=== PATIENT | female | born 1995 | race Caucasian/White ===

== ENCOUNTER → 2016-04-25 | Outpatient (CLI) | payer OTHER ==
--- NOTE | 2016-04-25 14:12 | DIAGNOSTIC IMAGING REPORT ---
EXAMINATION: PELVIC ULTRASOUND CLINICAL HISTORY: N91.2 Amenorrhea COMPARISON STUDY: None FINDINGS: The uterus measured 6.0 x 2.3 x 3.8 cm. The endometrial stripe measured 4 mm. The right ovary measured 35 x 19 x 19 mm. The left ovary measured 42 x 19 x 25 mm. There is no ultrasonographic evidence of ovarian torsion. It should be noted that ovarian torsion can be present with normal Doppler ultrasonographic findings. There was no evidence of pathologic free pelvic fluid. Endovaginal scanning was not performed as the patient reports she is not sexually active. IMPRESSION: Normal pelvic ultrasound. Electronically signed by: Diego Isaac M.D. 04/25/2016 2:10 PM Dictated Date/Time: 04/25/2016 2:09 PM
== END | disposition home or self-care (01) ==
LOC: C.ULTR 13:44
PROVIDERS: ATTEND Family Medicine
DX: N91.2 Amenorrhea, unspecified (principal)

== ENCOUNTER → 2016-10-25 | Outpatient (CLI) | payer OTHER ==
[2016-10-25 10:32] LABS: INSULIN FASTING 44.3 mU/L (3-25); INSULIN LOG 1.6464
[2016-10-25 12:10] LABS: CALCULATED INSULIN SENSITIVITY 0.277; GLUCOSE LOG 1.9638
== END | disposition home or self-care (01) ==
LOC: C.LAB1850 07:59
PROVIDERS: ATTEND Obstetrics & Gynecology
DX: N91.2 Amenorrhea, unspecified (principal)

== ENCOUNTER → 2016-10-30 | Outpatient (CLI) | payer OTHER | END | disposition home or self-care (01) | LOC: C.LAB1850 07:23 | PROVIDERS: ATTEND Obstetrics & Gynecology | DX: E88.81 Metabolic syndrome and other insulin resistance (principal) ==

== ENCOUNTER → 2017-03-21 | Outpatient (CLI) | payer OTHER ==
[2017-03-21 14:41] LABS: BASO % 0.5 %; BASO ABS # 0.04 K/uL (0-0.2); COMPLETE YES; EOS % 0.7 %; HEMATOCRIT 42.1 % (37-47); IG% 0.2 %; LYMPH % 31.4 %; LYMPH ABS # 2.63 K/uL (1.2-3.4); MEAN CELL VOLUME 78.4 fL (80-100); MEAN CORPUSCULAR HEMOGLOBIN 26.4 pg (25-34); MEAN CORPUSCULAR HGB CONC 33.7 g/dl (32-36); MEAN PLATELET VOLUME 10.4 fL (7.4-10.4); MONO % 6.1 %; NEUT % 61.1 %; PLATELET COUNT 294 K/uL (130-400); RED BLOOD COUNT 5.37 M/uL (4.2-5.4); WHITE BLOOD COUNT 8.38 K/uL (4.8-10.8)
[2017-03-21 14:59] LABS: ALT/SGPT 20 U/L (12-78); BLOOD UREA NITROGEN 9 mg/dl (7-18); CALCIUM 8.6 mg/dl (8.5-10.1); CARBON DIOXIDE 22 mmol/L (21-32); CHLORIDE 106 mmol/L (98-107); CREATININE 0.77 mg/dl (0.60-1.20); GLUCOSE 92 mg/dl (70-99); POTASSIUM 3.6 mmol/L (3.5-5.1); SODIUM 137 mmol/L (136-145)
[2017-03-21 15:10] LABS: ALB/GLOB RATIO 0.9 (0.9-2); ALKALINE PHOSPHATASE 102 U/L (45-117); AST/SGOT 15 U/L (15-37)
== END | disposition home or self-care (01) ==
LOC: C.LAB1850 12:47
PROVIDERS: ATTEND Nurse Practitioner Adult Health
DX: E88.81 Metabolic syndrome and other insulin resistance (principal); R71.8 Other abnormality of red blood cells; R63.5 Abnormal weight gain; R76.8 Other specified abnormal immunological findings in serum